=== PATIENT | male | born 1965 | race Caucasian/White ===

== ENCOUNTER 2018-01-30 16:52 | Emergency (ER) | payer OTHER ==
[2018-01-30] MEDS ORDERED: Adenosine 6 MG/2 ML SDV ONE (16:57)
[2018-01-30] MEDS ORDERED: Adenosine 12 MG/4 ML SDV ONE (16:58)
[2018-01-30 16:59] VITALS: BP 155/141
[2018-01-30] MEDS ORDERED: Adenosine 6 MG/2 ML SDV IVPUSH ONE ×2 (16:59→17:02)
[2018-01-30] MEDS ORDERED: Sodium Chloride 0.9% 10 ML Syringe FLUSH PRN (17:07)
[2018-01-30] MEDS ORDERED: Aspirin 81 MG Tab.Chew PO ONE (17:07)
[2018-01-30] MEDS ORDERED: Aspirin 81 MG Tab.Chew ONE (17:09)
[2018-01-30] MEDS ORDERED: Sodium Chloride 0.9% 1,000 ML IV SCH (17:15)
--- NOTE | 2018-01-30 17:38 | EDM.PDOC ---
ED HPI GENERAL MEDICAL PROBLEM - General Chief Complaint: Chest Pain Stated Complaint: CHEST PAIN Time Seen by Provider: 01/30/18 17:06 Source of Information: Reports: Patient, Family History Limitations: Reports: No Limitations - History of Present Illness INITIAL COMMENTS - FREE TEXT/NARRATIVE: The patient presents with SVT. This is an ongoing problems. He has been chemically cardioverted about 6 times. He also has a history of PVCs. He has had 3 ablations in the past to help stop this. His last episode was October. Adenosine usually converts him. He has chest pain and shortness of breath. He was sleeping when this started. He denies fever, cough, abdominal pain, nausea or vomiting. He has a history of HTN and type II diabetes both of which he is being treated for. He does not know the cause. He is usually sleeping when this starts. Onset: Sudden Duration: Hour(s): (3) Location: Reports: Chest Quality: Reports: Pressure Severity: Moderate Improves with: Reports: None Worsens with: Reports: None Context: Reports: Activity (Sleeping when it started) Associated Symptoms: Reports: Chest Pain, Shortness of Breath. Denies: Cough, Fever/Chills, Headaches, Nausea/Vomiting Chest Pain Score (Numeric/FACES): 6 - Related Data Allergies Allergy/AdvReac Type Severity Reaction Status Date / Time No Known Allergies Allergy Verified 01/30/18 16:59 Home Meds: Home Meds Cyanocobalamin (Vitamin B-12) [Vitamin B-12] 1,000 mcg SL WEEKLY 06/05/16 [ History] Losartan [Cozaar] 50 mg PO DAILY 06/05/16 [History] Metoprolol Succinate [Toprol XL] 12.5 mg PO BEDTIME #30 tab.er 06/05/16 [Rx] metFORMIN [Glucophage] 1,000 mg PO BIDMEALS 06/05/16 [History] Past Medical History Cardiovascular History: Reports: Hypertension, Other (See Below) Other Cardiovascular History: SVT Endocrine/Metabolic History: Reports: Diabetes, Type II - Past Surgical History Cardiovascular Surgical History: Reports: Cardiac Ablation Other Cardiovascular Surgeries/Procedures: x3 GI Surgical History: Reports: Hernia, Abdominal Social & Family History - Family History Family Medical History: Noncontributory - Tobacco Use Years of Tobacco use: 10 Packs/Tins Daily: 0.5 Used Tobacco, but Quit: No Second Hand Smoke Exposure: No - Caffeine Use Caffeine Use: Reports: None - Recreational Drug Use Recreational Drug Use: No ED ROS GENERAL - Review of Systems Review Of Systems: See Below Constitutional: Reports: No Symptoms HEENT: Reports: No Symptoms Respiratory: Reports: Shortness of Breath Cardiovascular: Reports: Chest Pain, Lightheadedness, Palpitations Endocrine: Reports: No Symptoms GI/Abdominal: Reports: No Symptoms : Reports: No Symptoms Musculoskeletal: Reports: No Symptoms ED EXAM, GENERAL - Physical Exam Exam: See Below Exam Limited By: No Limitations General Appearance: Moderate Distress Ears: Normal External Exam Nose: Normal Inspection Head: Atraumatic, Normocephalic Neck: Normal Inspection Respiratory/Chest: No Respiratory Distress, Lungs Clear, Normal Breath Sounds Cardiovascular: No Edema, No Murmur, Tachycardia GI/Abdominal: Soft, Non-Tender, No Organomegaly, No Mass Extremities: Normal Inspection Neurological: Alert, Oriented, No Motor/Sensory Deficits EKG INTERPRETATION EKG Date: 01/30/18 Time: 16:59 Rhythm: Other (SVT) Rate (Beats/Min): 184 QRS: RBBB EKG Interpretation Comments: SVT with RBBB Course - Vital Signs Last Recorded V/S: Last Vital Signs Temp 99 F 01/30/18 16:57 Pulse 188 H 01/30/18 16:57 Resp 37 H 01/30/18 16:57 BP 155/141 H 01/30/18 16:57 Pulse Ox 99 01/30/18 16:57 - Orders/Labs/Meds Orders: Active Orders 24 hr Category Date Time Status Cardiac Monitoring [RC] . DIRECTED Care 01/30/18 17:07 Active EKG Documentation Completion [RC] STAT Care 01/30/18 17:10 Active Peripheral IV Care [RC] . DIRECTED Care 01/30/18 17:10 Active Chest 1V Frontal [CR] Stat Exams 01/30/18 17:10 Taken Sodium Chloride 0.9% [Normal Saline] 1,000 ml Med 01/30/18 17:15 Active IV .BOLUS Sodium Chloride 0.9% [Saline Flush] Med 01/30/18 17:07 Active 10 ml FLUSH ASDIRECTED PRN Peripheral IV Insertion Adult [OM.PC] Stat Oth 01/30/18 17:07 Ordered Medication Orders Sodium Chloride (Normal Saline) 1,000 mls @ 1,000 mls/hr IV .BOLUS DOMINICK Last Admin: 01/30/18 17:13 Dose: 1,000 mls/hr Sodium Chloride (Saline Flush) 10 ml FLUSH ASDIRECTED PRN PRN Reason: Keep Vein Open Last Admin: 01/30/18 17:13 Dose: 10 ml Labs: Laboratory Tests 01/30/18 01/30/18 Range/Units 17:08 17:08 WBC 9.39 H (4.23-9.07) K/mm3 RBC 5.22 (4.63-6.08) M/mm3 Hgb 16.0 (13.7-17.5) gm/L Hct 45.4 (40.1-51.0) % MCV 87.0 (79.0-92.2) fl MCH 30.7 (25.7-32.2) pg MCHC 35.2 (32.2-35.5) g/dl RDW Std Deviation 39.8 (35.1-43.9) fL Plt Count 243 (163-337) K/mm3 MPV 8.4 L (9.4-12.3) fl Neut % (Auto) 69.7 H (34.0-67.9) % Lymph % (Auto) 18.8 L (21.8-53.1) % [place] % (Auto) 8.1 (5.3-12.2) % Eos % (Auto) 1.8 (0.8-7.0) Baso % (Auto) 0.3 (0.1-1.2) % Neut # (Auto) 6.54 H (1.78-5.38) K/mm3 Lymph # (Auto) 1.77 (1.32-3.57) K/mm3 [place] # (Auto) 0.76 (0.30-0.82) K/mm3 Eos # (Auto) 0.17 (0.04-0.54) K/mm3 Baso # (Auto) 0.03 (0.01-0.08) K/mm3 Manual Slide Review Normal smear Sodium 141 (136-145) mEq/L Potassium 3.9 (3.5-5.1) mEq/L Chloride 105 (98-107) mEq/L Carbon Dioxide 20 L (21-32) mEq/L Anion Gap 19.9 H (5-15) BUN 12 (7-18) mg/dL Creatinine 1.1 (0.7-1.3) mg/dL Est Cr Clr Drug Dosing 90.80 mL/min Estimated GFR (MDRD) > 60 (>60) mL/min BUN/Creatinine Ratio 10.9 L (14-18) Glucose 148 H (74-106) mg/dL Calcium 9.0 (8.5-10.1) mg/dL Total Bilirubin 0.9 (0.2-1.0) mg/dL AST 33 (15-37) U/L ALT 55 (16-63) U/L Alkaline Phosphatase 91 (46-116) U/L Troponin I < 0.017 (0.00-0.056) ng/mL Total Protein 7.7 (6.4-8.2) g/dl Albumin 4.0 (3.4-5.0) g/dl Globulin 3.7 gm/dL Albumin/Globulin Ratio 1.1 (1-2) Meds: Medications Generic Name Dose Route Start Last Admin Trade Name Freq PRN Reason Stop Dose Admin Sodium Chloride 1,000 mls @ 1,000 mls/hr 01/30/18 17:15 01/30/18 17:13 Normal Saline IV 1,000 mls/hr .BOLUS DOMINICK Administration Sodium Chloride 10 ml 01/30/18 17:07 01/30/18 17:13 Saline Flush FLUSH 10 ml ASDIRECTED PRN Administration Keep Vein Open Discontinued Medications Generic Name Dose Route Start Last Admin Trade Name Freq PRN Reason Stop Dose Admin Adenosine Confirm 01/30/18 16:57 01/30/18 17:17 Adenocard Administered 01/30/18 16:58 Not Given Dose 6 mg .ROUTE .STK-MED ONE Adenosine Confirm 01/30/18 16:58 01/30/18 17:19 Adenocard Administered 01/30/18 16:59 Not Given Dose 12 mg .ROUTE .STK-MED ONE Adenosine 6 mg 01/30/18 16:59 01/30/18 16:59 Adenocard IVPUSH 01/30/18 17:00 6 mg NOW ONE Administration Adenosine 12 mg 01/30/18 17:02 01/30/18 17:02 Adenocard IVPUSH 01/30/18 17:03 12 mg NOW ONE Administration Aspirin 324 mg 01/30/18 17:07 01/30/18 17:13 Aspirin PO 01/30/18 17:08 324 mg ONETIME ONE Administration Aspirin Confirm 01/30/18 17:09 01/30/18 17:13 Aspirin Administered 01/30/18 17:10 Not Given Dose 324 mg .ROUTE .STK-MED ONE - Re-Assessments/Exams Free Text/Narrative Re-Assessment/Exam: 01/30/18 17:41 The patient is in SVT with a RBBB. I ordered an IV NS, adenosine 6mg and then 12mg. The 12mg did convert him to a NSR with no acute changes. I have ordered a CXR that looks good and labs. 01/30/18 18:06 His labs look good. His troponin is negative. He feels better. I will discharge him home. Departure - Departure Time of Disposition: 18:10 Disposition: Home, Self-Care 01 Condition: Good Clinical Impression: Supraventricular tachycardia Referrals: Meir Delvalle Jr, MD [Primary Care Provider] - Brannon Torres MD [Ordering Only Provider] - 2 Weeks Forms: ED Department Discharge Additional Instructions: Take your medication as prescribed. Follow up with your doctor or Dr Torres. Please return if you are worse. - My Orders Last 24 Hours: My Active Orders 01/30/18 17:07 Cardiac Monitoring [RC] . DIRECTED Sodium Chloride 0.9% [Saline Flush] 10 ml FLUSH ASDIRECTED PRN Peripheral IV Insertion Adult [OM.PC] Stat 01/30/18 17:10 EKG Documentation Completion [RC] STAT Peripheral IV Care [RC] . DIRECTED Chest 1V Frontal [CR] Stat 01/30/18 17:15 Sodium Chloride 0.9% [Normal Saline] 1,000 ml IV .BOLUS - Assessment/Plan Last 24 Hours: My Active Orders 01/30/18 17:07 Cardiac Monitoring [RC] . DIRECTED Sodium Chloride 0.9% [Saline Flush] 10 ml FLUSH ASDIRECTED PRN Peripheral IV Insertion Adult [OM.PC] Stat 01/30/18 17:10 EKG Documentation Completion [RC] STAT Peripheral IV Care [RC] . DIRECTED Chest 1V Frontal [CR] Stat 01/30/18 17:15 Sodium Chloride 0.9% [Normal Saline] 1,000 ml IV .BOLUS
--- NOTE | 2018-01-31 14:07 | CR ---
Chest: Portable view of the chest was obtained. Comparison: Prior chest x-ray of 06/05/16. Heart size and mediastinum are within normal limits for portable technique. Lungs are clear with no acute parenchymal densities. Bony structures are unremarkable. Impression: 1. Nothing acute is seen on portable chest x-ray. Diagnostic code #1
== END 2018-01-30 18:14 | disposition home or self-care (01) ==
LOC: JD.ED 16:52
DX: I47.1 Supraventricular tachycardia (principal); I10 Essential (primary) hypertension; E11.9 Type 2 diabetes mellitus without complications; Z79.899 Other long term (current) drug therapy
CPT/HCPCS: 36415; 71045; 80053; 84484; 85025; 93005; 96361; 96374; 99285; A9270; J0153; J7040; J7050; 93010; 99284-25

== ENCOUNTER 2019-10-10 08:49 | Emergency (ER) | payer OTHER ==
[2019-10-10] MEDS ORDERED: Adenosine 6 MG/2 ML SDV ONE (09:03)
[2019-10-10] MEDS ORDERED: Adenosine 12 MG/4 ML SDV ONE (09:04)
[2019-10-10] MEDS ORDERED: Sodium Chloride 0.9% 1,000 ML ONE (09:06)
[2019-10-10] MEDS ORDERED: Adenosine 6 MG/2 ML SDV IVPUSH ONE ×2 (09:08→09:11)
[2019-10-10] MEDS ORDERED: Sodium Chloride 0.9% 1,000 ML IV ONE (09:10)
[2019-10-10 09:18] VITALS: BP 114/87; PULSE 195
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
[2019-10-10] MEDS ORDERED: FLU Vacc QS2019-20(6MOS+)/PF 60 MCG/0.5 ML SYRINGE IM ONE (09:30)
== END 2019-10-10 10:23 | disposition home or self-care (01) ==
LOC: JD.ED 08:49
DX: I47.1 Supraventricular tachycardia (principal); Z23 Encounter for immunization; I10 Essential (primary) hypertension; E11.9 Type 2 diabetes mellitus without complications; Z79.899 Other long term (current) drug therapy; Z79.84 Long term (current) use of oral hypoglycemic drugs
CPT/HCPCS: 90471; 90686; 93005; 96361; 96374; 99284; J0153; J7030; 93010; G0008

== ENCOUNTER 2023-09-14 06:38 | Day surgery (SDC) | payer BC, OTHER ==
[~2023-09-14 06:38] MED LIST: Lactated Ringers 1,000 ML IV SCH; Lidocaine 1%/Sod Bicarbonate in NS 8.4% 1 ML Syringe IDERM PRN; Sodium Chloride 0.9% 10 ML Syringe FLUSH PRN; Sodium Chloride 0.9% 10 ML Syringe FLUSH SCH
[2023-09-14] MEDS ORDERED: Bupivacaine 0.5% 10 ML SDV ONE ×2 (07:13→07:15)
[2023-09-14] MEDS ORDERED: Lidocaine 1% 10 ML MDV ONE (07:13)
[2023-09-14] MEDS ORDERED: Ropivacaine 0.5% 5 MG/ML 30 ML SDV ONE (07:24)
[2023-09-14] MEDS ORDERED: dexmedeTOMIDine HCl 200 MCG/2 ML SDV ONE (07:24)
[2023-09-14] MEDS ORDERED: fentaNYL 100 MCG/2 ML SDV ONE (07:32)
[2023-09-14] MEDS ORDERED: Midazolam 1 MG/ML 2 ML SDV ONE ×2 (07:33→07:38)
[2023-09-14] MEDS ORDERED: Propofol 200 MG/20 ML SDV ONE (07:37)
[2023-09-14] MEDS ORDERED: Lidocaine 2% 5 ML SDV ONE (07:38)
[2023-09-14] MEDS ORDERED: Dexamethasone 4 MG/ML 5 ML MDV ONE (07:40)
[2023-09-14] MEDS ORDERED: HYDROmorphone 0.5 MG/0.5 ML Syringe IVPUSH PRN (07:51)
[2023-09-14] MEDS ORDERED: fentaNYL 100 MCG/2 ML SDV IVPUSH PRN (07:51)
[2023-09-14] MEDS ORDERED: Ondansetron 4 MG/2 ML SDV IVPUSH PRN (07:51)
[2023-09-14] MEDS ORDERED: ceFAZolin 2 GM Vial ONE (08:45)
[2023-09-14 11:28] VITALS: BP 135/90; PULSE 78
== END 2023-09-14 11:13 | disposition home or self-care (01) ==
LOC: JD.SDS 06:38
PROVIDERS: ATTEND Podiatrist Foot & Ankle Surgery
DX: M89.8X7 Other specified disorders of bone, ankle and foot (principal); M77.52 Other enthesopathy of left foot and ankle; M20.32 Hallux varus (acquired), left foot; E11.9 Type 2 diabetes mellitus without complications; I10 Essential (primary) hypertension; E66.9 Obesity, unspecified; Z68.33 Body mass index [BMI] 33.0-33.9, adult; G47.33 Obstructive sleep apnea (adult) (pediatric); K21.9 Gastro-esophageal reflux disease without esophagitis; Z86.16 Personal history of COVID-19; F17.220 Nicotine dependence, chewing tobacco, uncomplicated; Z79.84 Long term (current) use of oral hypoglycemic drugs; Z79.899 Other long term (current) drug therapy
CPT/HCPCS: 28124; J0665; J0690; J1100; J2250; J2704; J2795; J3010; J7120; J3490

== ENCOUNTER 2024-09-28 08:49 | Emergency (ER) | payer BC ==
[2024-09-28] MEDS: Ketorolac 30 MG/ML SDV IM ONE (09:25)
[2024-09-28 11:31] VITALS: BP 142/83; PULSE 81
== END 2024-09-28 11:33 | disposition home or self-care (01) ==
LOC: JD.ED 08:49
DX: M25.511 Pain in right shoulder (principal); I10 Essential (primary) hypertension; E11.9 Type 2 diabetes mellitus without complications; Z88.6 Allergy status to analgesic agent; Z79.84 Long term (current) use of oral hypoglycemic drugs; Z79.899 Other long term (current) drug therapy
CPT/HCPCS: 73030; 96372; 99283; J1885